=== PATIENT | female | born 1955 | race Caucasian/White ===

== ENCOUNTER → 2018-02-27 | Outpatient (CLI) | payer OTHER ==
--- NOTE | 2018-02-27 14:55 | RADIOLOGY REPORT (SQ) ---
EXAM DESCRIPTION: BARIUM SWALLOW ESOPHAGUS COMPLETED DATE/TIME: 02/27/2018 10:09 am REASON FOR STUDY: GERD K21.9 GASTRO-ESOPHAGEAL REFLUX DISEASE WITHOUT ESOPHAGITIS COMPARISON: None. TECHNIQUE: Under fluoroscopic guidance, patient ingested thick and thin barium. Fluoroscopic spot im ages and routine radiographic images acquired and stored on PACS. 12 MM BARIUM TABLET GIVEN: No LIMITATIONS: None. FLUOROSCOPY TIME: 2.1 minutes 10 images saved to PACS. FINDINGS: NEUROMUSCULAR COORDINATION OF SWALLOW: Normal. No aspiration. ESOPHAGEAL MOTILITY: Significant esophageal dysmotility due to distal stricture relating to lap band. ESOPHAGEAL MUCOSA: Esophageal dilatation. Normal mucosa without masses or ulceration. GASTRO-ESOPHAGEAL JUNCTION: There is a severe narrowing through the channel of the lap band, which de lays the passage of barium into the stomach. Barium within the esophagus is observed refluxing up to the cervical region. No hiatal hernia. NON-GI TRACT STRUCTURES: No significant finding. OTHER: No other significant finding. IMPRESSION: Severe narrowing through the channel of the lap band, with delayed passage of barium int o the stomach. Esophageal dilatation with stasis of barium within the esophagus, refluxing to the ce rvical region. COMMENT: None Quality ID [id number]: Final reports for procedures using fluoroscopy that document radiation exposure koko dipak, or exposure time and number of fluorographic images (if radiation exposure indices are not avail able) TECHNICAL DOCUMENTATION: JOB ID: [id number] 2001 [employer]- All Rights Reserved Reading location - IP/workstation name: [email or web address] [id number]
== END ==
LOC: RAD 08:55
PROVIDERS: ATTEND Thoracic Surgery (Cardiothoracic Vascular Surgery)
DX: K21.9 Gastro-esophageal reflux disease without esophagitis (principal)
CPT/HCPCS: 74220